=== PATIENT | female | born 1985 ===

== ENCOUNTER 2024-10-04 11:13 | Inpatient (IN) | payer OTHER ==
[~2024-10-04] VITALS: Ht 162.6 cm; Wt 110.7 kg
[2024-10-04] MEDS ORDERED: MAXFE CAPLET1 EAC1 PO (12:59)
[2024-10-04 14:33] LABS: RH POSITIVE
[2024-10-11] MEDS ORDERED: CEFAZOLIN SODIUM 1,000 MG VIAL ONE (09:05)
[2024-10-11] MEDS ORDERED: POVIDONE-IODINE 118 ML BOTT TOP ONE (16:06)
[2024-10-11] MEDS ORDERED: SUGAMMADEX SODIUM 200 MG/2 ML VIAL IV ONE (16:24)
[2024-10-11] MEDS ORDERED: VISTASEAL DUAL APPICATOR 1 EACH APPL TOP ONE ×2 (17:30→18:23)
[2024-10-11] MEDS ORDERED: THROMBIN,HU/FIBRINOGEN/CALCIUM 10 ML SYRINGE TOP ONE ×2 (17:30→18:23)
[2024-10-11] MEDS ORDERED: CEFAZOLIN SODIUM 1,000 MG VIAL IV SCH (18:15)
[2024-10-11] MEDS ORDERED: RINGERS SOLUTION,LACTATED 1,000 ML IV SCH (19:19)
[2024-10-11] MEDS ORDERED: CELECOXIB 200 MG CAPSULE PO STA (19:20)
[2024-10-11] MEDS ORDERED: GABAPENTIN 100 MG CAPSULE PO SCH (19:20)
[2024-10-11] MEDS ORDERED: ACETAMINOPHEN 325 MG TABLET PO SCH (20:00)
[2024-10-11] MEDS ORDERED: ONDANSETRON HCL 2 MG/ML VIAL IV SCH (20:00)
[2024-10-11] MEDS ORDERED: MORPHINE SULFATE 4 MG/ML VIAL IV ONE ×2 (20:15→22:40)
[2024-10-11 20:45] LABS: BASO % 0.2 % (0.1-1.2); EOS # 0.06 (0.04-0.54); EOS % 0.3 % (0.7-7.0); LYMPH # 1.77 (1.18-3.74); LYMPH % 10.2 % (19.3-53.1); MEAN PLATELET VOLUME 10.80 fl (9.4-12.4); MONO # 0.78 (0.24-0.82); MONO % 4.5 % (4.7-12.5); NEUT # 14.61 (1.56-6.13); NEUT % 84.3 % (34.0-71.1); RED CELL DISTRIBUTION WIDTH 16.9 % (11.6-14.4)
[2024-10-11] MEDS ORDERED: GABAPENTIN 100 MG CAPSULE PO ONE (20:59)
[2024-10-11] MEDS ORDERED: ACETAMINOPHEN 500 MG GEL..CAP PO ONE (20:59)
[2024-10-11] MEDS ORDERED: CELECOXIB 200 MG CAPSULE PO ONE (20:59)
[2024-10-11 21:06] LABS: BUN CREA RATIO 13.0 (7.0-25.0); CREATININE SERUM 0.56 mg/dL (0.55-1.02); GFR 119.9; GLUCOSE FASTING 129.0 mg/dL (65-100); OSMOLALITY SERUM 283.0 MOSM/KG (275-295)
[2024-10-12] MEDS ORDERED: GABAPENTIN 100 MG CAPSULE PO ONE (00:16)
[2024-10-12] MEDS ORDERED: ACETAMINOPHEN 325 MG TABLET PO ONE (00:16)
[2024-10-12] MEDS ORDERED: ONDANSETRON HCL 2 MG/ML VIAL ONE (00:16)
[2024-10-12 01:49] LABS: BASO % 0.2 % (0.1-1.2); EOS # 0.00 (0.04-0.54); EOS % 0.0 % (0.7-7.0); LYMPH # 0.87 (1.18-3.74); LYMPH % 5.1 % (19.3-53.1); MEAN PLATELET VOLUME 11.00 fl (9.4-12.4); MONO # 0.81 (0.24-0.82); MONO % 4.8 % (4.7-12.5); NEUT # 15.21 (1.56-6.13); NEUT % 89.5 % (34.0-71.1); RED CELL DISTRIBUTION WIDTH 16.6 % (11.6-14.4)
[2024-10-12 03:21] VITALS: BP 139/82
[2024-10-12 06:54] LABS: BASO % 0.1 % (0.1-1.2); EOS # 0.03 (0.04-0.54); EOS % 0.2 % (0.7-7.0); LYMPH # 1.14 (1.18-3.74); LYMPH % 8.3 % (19.3-53.1); MEAN PLATELET VOLUME 10.70 fl (9.4-12.4); MONO # 0.86 (0.24-0.82); MONO % 6.2 % (4.7-12.5); NEUT # 11.70 (1.56-6.13); NEUT % 84.8 % (34.0-71.1); RED CELL DISTRIBUTION WIDTH 16.3 % (11.6-14.4)
[2024-10-12 07:40] LABS: BUN CREA RATIO 11.0 (7.0-25.0); CREATININE SERUM 0.38 mg/dL (0.55-1.02); GFR 187.57; GLUCOSE FASTING 78.0 mg/dL (65-100); OSMOLALITY SERUM 277.0 MOSM/KG (275-295)
[2024-10-12 08:00] VITALS: BP 116/73
[2024-10-12] MEDS ORDERED: Cyanocobalamin/Mecobalamin 1 TAB.SL SL SCH (09:00)
[2024-10-12 19:14] VITALS: BP 106/63
== END 2024-10-12 19:32 | disposition home or self-care (01) | DRG 743 ==
LOC: SURH 10-11 07:00 → O/R 10-11 08:00 → SURH 10-11 12:15 → OB/GYN 10-11 20:12
PROVIDERS: Surgery; ADMIT Obstetrics & Gynecology Gynecology; ATTEND Obstetrics & Gynecology Gynecology
PROC: 0FT44ZZ Resection of Gallbladder, Percutaneous Endoscopic Approach (ICD-10-PCS; 2024-10-11)
PROC: BF13YZZ Fluoroscopy of Gallbladder and Bile Ducts using Other Contrast (ICD-10-PCS; 2024-10-11)
PROC: 4A1BXSH Monitoring of Gastrointestinal Vascular Perfusion using Indocyanine Green Dye, External Approach (ICD-10-PCS; 2024-10-11)
PROC: 0T788DZ Dilation of Bilateral Ureters with Intraluminal Device, Via Natural or Artificial Opening Endoscopic (ICD-10-PCS; 2024-10-11)
PROC: 0UT74ZZ Resection of Bilateral Fallopian Tubes, Percutaneous Endoscopic Approach (ICD-10-PCS; principal; 2024-10-11 07:00)
PROC: 0UT94ZZ Resection of Uterus, Percutaneous Endoscopic Approach (ICD-10-PCS; 2024-10-11 07:00)
DX: N84.0 Polyp of corpus uteri (principal); N72 Inflammatory disease of cervix uteri; N92.0 Excessive and frequent menstruation with regular cycle; N80.559 Endometriosis of other parts of the colon, unspecified depth; K81.1 Chronic cholecystitis; D50.9 Iron deficiency anemia, unspecified; I10 Essential (primary) hypertension; E66.01 Morbid (severe) obesity due to excess calories; Z68.38 Body mass index [BMI] 38.0-38.9, adult